=== PATIENT | male | born 1970 | race Caucasian/White ===

== ENCOUNTER 2023-01-11 12:26 | Emergency (ER) | payer MEDICAID ==
[~2023-01-11] VITALS: Ht 172.7 cm; Wt 84.4 kg
[2023-01-11 12:38] VITALS: BP 131/74
--- NOTE | 2023-01-11 12:44 | NUR ---
Patient ambulated to bed 8.
[2023-01-11] MEDS ORDERED: ONDANSETRON 4 MG/2 ML VIAL IVP ONE (13:00)
[2023-01-11] MEDS ORDERED: KETOROLAC 15 MG/ML VIAL IVP ONE (13:00)
[2023-01-11] MEDS ORDERED: NACL 0.9% 1,000 ML IV SCH (13:00)
[2023-01-11] MEDS ORDERED: FAMOTIDINE 20 MG/2 ML VIAL IVP ONE (13:00)
--- NOTE | 2023-01-11 13:45 | NUR ---
52 y/o male bib self with c/o abdominal pain and dizziness x yesterday. Per patient ate pork last night. Pain is non-radiating to RUQ. Denies taking any medication. Patient reports vomiting. Denies any fevers or chills. Medical History: Denies NKDA
[2023-01-11 14:11] LABS: ALBUMIN 3.9 g/dL (3.4-5.0); ANION GAP 15.7 (8-16); CARBON DIOXIDE 24.1 mmol/L (21-32); CREATININE 1.1 mg/dL (0.6-1.3); POTASSIUM 4.8 mmol/L (3.5-5.1); TOTAL BILIRUBIN 0.5 mg/dL (0.0-1.0)
[2023-01-11 14:25] LABS: BASOPHILS % (AUTO) 0.4 % (0.0-2.0); EOSINOPHILS # (AUTO) 0.1 K/uL (0-0.4); HEMATOCRIT 47.1 % (36-52); HEMOGLOBIN 16.1 g/dL (12.0-18.0); LYMPHOCYTES # (AUTO) 1.6 K/uL (2.0-11.5); LYMPHOCYTES % (AUTO) 19.8 % (20.5-51.1); MEAN CORPUSCULAR HEMOGLOBIN 33 pg (27-31); MEAN CORPUSCULAR HGB CONC 34 g/dL (33-37); MEAN CORPUSCULAR VOLUME 96.6 fL (80-94); MONOCYTES # (AUTO) 0.6 K/uL (0.8-1.0); MONOCYTES % (AUTO) 7.9 % (1.7-9.3); NEUTROPHILS # (AUTO) 5.7 K/uL (1.8-7.7); NEUTROPHILS % (AUTO) 70.9 % (42.2-75.2); PLATELET COUNT (AUTO) 259 K/uL (140-450); RED BLOOD CELL COUNT(AUTO) 4.87 MIL/uL (4.20-6.10); RED CELL DISTRIBUTION WIDTH 12.5 % (11.6-13.7)
[2023-01-11] MEDS ORDERED: OMEP40EC23 PO (15:05)
[2023-01-11] MEDS ORDERED: SUCR1TAB35 PO (15:05)
[2023-01-11] MEDS ORDERED: ONDA-188 SL (15:05)
--- NOTE | 2023-01-11 15:26 | NUR ---
Patient discharged with v/s stable. Written and verbal after care instructions given. Patient alert, oriented and verbalized understanding of instructions. Ambulatory with steady gait. All questions addressed prior to discharge. ID band removed. Patient advised to follow up with PMD. Rx of ZOFRAN, PRILOSEC AND CARAFATE given. Opportunity to ask questions provided and answered. WORK NOTE HANDED TO PATIENT.
--- NOTE | 2023-01-11 15:27 | NUR ---
The patient's care was reviewed and supervised by Marcie Carpio, RN, RN.
== END 2023-01-11 15:26 | disposition home or self-care (01) ==
LOC: MED 12:26
DX: R10.11 Right upper quadrant pain (principal); Z79.899 Other long term (current) drug therapy
CPT/HCPCS: 36415; 76705; 80053; 83690; 85025; 96361; 96374; 96375; 99285; J1885; J2405; J3490; J7030; Q0092